=== PATIENT | female | born 1980 | race Caucasian/White ===

== ENCOUNTER 2020-08-19 14:10 | Emergency (ER) | payer BC, OTHER ==
[~2020-08-19] VITALS: Ht 152.4 cm; Wt 73.0 kg
--- NOTE | 2020-08-19 14:21 | NUR ---
DRIVER COURIER: RECORDS REQUEST SIGNED AND GIVEN TO MT TO FAX TO [facility].
--- NOTE | 2020-08-19 14:35 | NUR ---
SERVICE DISMANTLER: PT TO ROOM FROM LOBBY AT THIS TIME, AMBULATORY WITH STEADY GAIT WITH JEAN LOVING.
[2020-08-19] MEDS ORDERED: METOCLOPRAMIDE 5 MG/ML, 2ML ONE (15:30)
[2020-08-19] MEDS ORDERED: DIPHENHYDRAMINE 50 MG/ML, 1ML ONE (15:30)
[2020-08-19] MEDS ORDERED: DIPHENHYDRAMINE 50 MG/ML, 1ML IVPush ONE (15:30)
[2020-08-19] MEDS ORDERED: DEXAMETHASONE 4 MG/ML, 1ML IVPush ONE (15:30)
[2020-08-19] MEDS ORDERED: SODIUM CHLORIDE 0.9% 1,000ML IVBOLUS ONE (15:30)
[2020-08-19] MEDS ORDERED: DEXAMETHASONE 4 MG/ML, 5ML ONE (15:30)
[2020-08-19] MEDS ORDERED: SODIUM CHLORIDE FLUSH 10ML SYR IVF ONE (15:30)
[2020-08-19] MEDS ORDERED: METOCLOPRAMIDE 5 MG/ML, 2ML IVPush ONE (15:30)
[2020-08-19 17:10] VITALS: BP 124/74
== END 2020-08-19 17:12 | disposition home or self-care (01) ==
LOC: ED 17:00
DX: R51.9 Headache, unspecified (principal); R94.31 Abnormal electrocardiogram [ECG] [EKG]; R11.0 Nausea; R53.1 Weakness; R42 Dizziness and giddiness
CPT/HCPCS: 93005; 96361; 96374; 96375; 99284; J1100; J1200; J2765; J7030